=== PATIENT | male | born 1960 | race Two or more races ===

== ENCOUNTER 2024-09-05 11:40 | Inpatient (IN) | payer OTHER ==
[2024-09-05 12:45] LABS: ABSOLUTE IMMATURE GRANULOCYTES 0.01 x10^3/uL (0.0-0.031); BASOPHILS # 0.03 x10^3/uL (0.01-0.08); EOSINOPHIL % 3.9 % (0.8-7.0); EOSINOPHILS # 0.19 x10^3/uL (0.04-0.54); MCHC 33.2 g/dl (32.3-36.5); MEAN CELL VOLUME 89.0 fl (79.0-92.2); MEAN PLT VOLUME 10.1 fl (9.4-12.4); MONOCYTE # 0.36 x10^3/uL (0.30-0.82); MONOCYTE % 7.5 % (5.3-12.2); RDW 11.6 % (12.2-16.4)
[2024-09-05 12:58] LABS: INR 0.97 (0.83-1.09); PROTHROMBIN TIME (PATIENT) 10.6 SEC (9.7-13.0)
[2024-09-05 13:00] LABS: ACTIVATED PTT 31.6 SECONDS (25.2-36.5)
[2024-09-05 13:12] LABS: CO2 28.0 mmol/L (21-32); GLUCOSE,RANDOM 109.0 mg/dL (74-106)
[2024-09-05 13:15] LABS: CREATININE 0.7 mg/dL (0.55-1.3); SGOT/AST 20.0 U/L (15-37); SGPT/ALT 25.0 U/L (13-61)
[2024-09-05 13:16] LABS: LDL CHOLESTEROL (ONLY SJRH) 70.0 mg/dL (5-100); TOT PROT 6.8 g/dl (6.4-8.2)
[2024-09-05 13:17] LABS: ALK PHOS 96.0 U/L (45-117)
[2024-09-05] MEDS ORDERED: METOCLOPRAMIDE HCL INJECTION 10 MG/2 ML VIAL ONE (13:35)
[2024-09-05] MEDS: METOCLOPRAMIDE HCL INJECTION 10 MG/2 ML VIAL IVPB ONE (13:43)
[2024-09-05 13:58] LABS: HCV DIAGNOSTIC IN-HOUSE W/RFLX NON-REACTIVE (NONREACTIVE)
[2024-09-05 16:34] LABS: HIV INTERPRETATION NEGATIVE (NEGATIVE)
[2024-09-05] MEDS ORDERED: amLODIPine BESYLATE 2.5 MG TABLET (FP) ONE (18:32)
[2024-09-05] MEDS: amLODIPine BESYLATE 2.5 MG TABLET (FP) PO SCH (18:37)
[2024-09-05] MEDS ORDERED: ASPIRIN 81 MG CHEWABLE TABLETS ONE (21:21)
[2024-09-05] MEDS: ASPIRIN 81 MG CHEWABLE TABLETS PO ONE (21:28)
[2024-09-05] MEDS ORDERED: HEPARIN NA (PORCINE) 5,000 UNITS/ML 1ML VIAL SQ SCH (22:00)
[2024-09-05] MEDS: RIFAXIMIN 550 MG TABLET PO SCH (22:41)
[2024-09-06 00:21] LABS: CO2 27.0 mmol/L (21-32); GLUCOSE,RANDOM 107.0 mg/dL (74-106)
[2024-09-06 00:24] LABS: CREATININE 0.7 mg/dL (0.55-1.3)
[2024-09-06 07:12] LABS: ABSOLUTE IMMATURE GRANULOCYTES 0.01 x10^3/uL (0.0-0.031); BASOPHILS # 0.04 x10^3/uL (0.01-0.08); EOSINOPHIL % 4.6 % (0.8-7.0); EOSINOPHILS # 0.25 x10^3/uL (0.04-0.54); MCHC 33.0 g/dl (32.3-36.5); MEAN CELL VOLUME 89.3 fl (79.0-92.2); MEAN PLT VOLUME 10.8 fl (9.4-12.4); MONOCYTE # 0.40 x10^3/uL (0.30-0.82); MONOCYTE % 7.4 % (5.3-12.2); RDW 11.5 % (12.2-16.4)
[2024-09-06 07:36] LABS: GLUCOSE,RANDOM 97.0 mg/dL (74-106)
[2024-09-06 07:37] LABS: CO2 26.0 mmol/L (21-32)
[2024-09-06 07:39] LABS: CREATININE 0.6 mg/dL (0.55-1.3); SGOT/AST 13.0 U/L (15-37); SGPT/ALT 22.0 U/L (13-61)
[2024-09-06 07:41] LABS: TOT PROT 6.8 g/dl (6.4-8.2)
[2024-09-06 07:42] LABS: ALK PHOS 95.0 U/L (45-117)
[2024-09-06 08:37] LABS: LDL CHOLESTEROL (ONLY DFH) 72 mg/dL (5-100)
[2024-09-06] MEDS ORDERED: ASPIRIN 81 MG CHEWABLE TABLETS ONE (09:54)
[2024-09-06] MEDS ORDERED: VALSARTAN 80 MG TABLET ONE (09:55)
[2024-09-06] MEDS ORDERED: PANTOPRAZOLE 40 MG TABLET PO ONE (09:55)
[2024-09-06] MEDS ORDERED: amLODIPine BESYLATE 5 MG TABLET (FP) ONE (09:55)
[2024-09-06] MEDS ORDERED: LISINOPRIL 5 MG TABLET PO SCH (10:00)
[2024-09-06] MEDS: VALSARTAN 160 MG TABLET PO SCH (10:01)
[2024-09-06] MEDS: PANTOPRAZOLE 40 MG TABLET PO SCH (10:01)
[2024-09-06] MEDS: ASPIRIN 81 MG CHEWABLE TABLETS PO SCH (10:01)
[2024-09-06] MEDS: amLODIPine BESYLATE 5 MG TABLET (FP) PO SCH (12:18)
[2024-09-06 17:14] VITALS: BMI 28.9
[2024-09-06] MEDS: ATORVASTATIN CA 40 MG TABLET (FP) PO SCH (21:14)
[2024-09-07 03:14] VITALS: TEMP 97.7
[2024-09-07] MEDS: VALSARTAN 160 MG TABLET PO SCH (09:42)
[2024-09-07] MEDS: CLOPIDOGREL BISULFATE 300 MG TABLET PO ONE (12:14)
[2024-09-07 13:58] LABS: MCHC 33.5 g/dl (32.3-36.5); MEAN CELL VOLUME 88.4 fl (79.0-92.2); MEAN PLT VOLUME 10.0 fl (9.4-12.4); RDW 11.6 % (12.2-16.4)
[2024-09-07 14:28] LABS: CO2 27.0 mmol/L (21-32); GLUCOSE,RANDOM 128.0 mg/dL (74-106)
[2024-09-07 14:31] LABS: CREATININE 0.8 mg/dL (0.55-1.3); SGOT/AST 15.0 U/L (15-37); SGPT/ALT 23.0 U/L (13-61)
[2024-09-07 14:33] LABS: TOT PROT 7.1 g/dl (6.4-8.2)
[2024-09-07 14:36] LABS: ALK PHOS 109.0 U/L (45-117)
[2024-09-07 14:58] VITALS: BP 149/77; PULSE 64; RESP 14
[2024-09-08] MEDS ORDERED: CLOPIDOGREL BISULFATE 75 MG TABLET (FP) PO SCH (10:00)
== END 2024-09-07 18:09 | disposition home or self-care (01) | DRG 103 ==
LOC: JER 11:40 → JERBED 13:28 → OBSVTOIN 17:14 → J4S 09-06 16:42
PROVIDERS: ADMIT Family Medicine; ATTEND Family Medicine
DX: R51.9 Headache, unspecified (principal); I10 Essential (primary) hypertension; E78.5 Hyperlipidemia, unspecified; R20.2 Paresthesia of skin
CPT/HCPCS: 36415; 70450-TC; 70496-TC; 70498-TC; 70551-TC; 71045-TC-FY; 80048; 80053; 80061; 82962; 83036; 83605; 83735; 84100; 84443; 84484; 85025; 85027; 85610; 85730; 86803; 86850; 86900; 86901; 87389; 93005; 93010; 93306-TC; 93880-TC; 99285-25; G0378